=== PATIENT | male | born 1995 | race Caucasian/White ===

== ENCOUNTER 2019-01-09 23:46 | Emergency (ER) | payer MEDICAID, OTHER ==
[~2019-01-09] VITALS: Ht 180.3 cm; Wt 68.2 kg
[2019-01-10] MEDS ORDERED: LIDOcaine 1% 30ml preserv. free vial IJ ONE
[2019-01-10 01:00] VITALS: BP 125/79
[2019-01-17] MEDS ORDERED: CLIN-5 PO (09:21)
[2019-01-17] MEDS ORDERED: PER5325T PO (10:13)
== END 2019-01-10 01:04 | disposition home or self-care (01) ==
LOC: ER 23:47
DX: S61.212A Laceration without foreign body of right middle finger without damage to nail, initial encounter (principal); F12.90 Cannabis use, unspecified, uncomplicated; W25.XXXA Contact with sharp glass, initial encounter; Y93.89 Activity, other specified; Y92.89 Other specified places as the place of occurrence of the external cause; Y99.9 Unspecified external cause status
CPT/HCPCS: 12001; 73130; 99283; J2001

== ENCOUNTER 2019-03-26 23:20 | Emergency (ER) | payer MEDICAID, OTHER ==
[~2019-03-26] VITALS: Ht 180.3 cm; Wt 68.2 kg
[~2019-03-26 23:20] MED LIST: CLIN-5 PO; PER5325T PO
[2019-03-26 23:26] VITALS: BP 128/86
--- NOTE | 2019-03-27 10:31 | NUR ---
ATTEMPTED TO CALL PT. AT [phone]. NO GREGORY, UNABLE TO LEAVE A MESSAGE
--- NOTE | 2019-03-27 10:40 | NUR ---
CALLED ALTERNATE PHONE NUMBER DAVID CRAIG (BROTHER). LEFT A MESSAGE TO HAVE PT. CALL US AND ASK FOR THE CHARGE NURSE
--- NOTE | 2019-03-27 18:13 | NUR ---
PT CALLED BACK, INFORMED THAT SHE MAY HAVE OSTEOMYLITIS IN HER FINGER AND NEEDS TO COME BACK IN FOR REEVALUATION. PT STATES THAT SHE WILL BE BACK THIS EVENING.
== END 2019-03-27 03:08 | disposition left against medical advice (07) ==
LOC: ER 23:21
DX: M79.644 Pain in right finger(s) (principal); Z53.21 Procedure and treatment not carried out due to patient leaving prior to being seen by health care provider
CPT/HCPCS: 73130

== ENCOUNTER 2019-03-27 21:32 | Emergency (ER) | payer OTHER ==
[~2019-03-27] VITALS: Ht 180.3 cm; Wt 68.0 kg
[2019-03-27 21:36] VITALS: BP 126/87
[2019-03-28 02:01] LABS: BASOPHILS # (AUTO) 0.1 X10'3 (0-0.2); EOSINOPHILS # (AUTO) 0.4 X10'3 (0-0.9); EOSINOPHILS % (AUTO) 5.3 % (0-6); HEMATOCRIT 44.9 % (42.0-52.0); HEMOGLOBIN 15.5 g/dl (14.0-17.9); LYMPHOCYTES # (AUTO) 2.7 X10'3 (1.1-4.8); LYMPHOCYTES % (AUTO) 38.1 % (21-51); MEAN CORPUSCULAR HEMOGLOBIN 30.2 PG (27.0-31.0); MEAN CORPUSCULAR HGB CONC 34.5 g/dL (33.0-36.5); MEAN CORPUSCULAR VOLUME 87.7 FL (78-98); MEAN PLATELET VOLUME 7.1 FL (7.4-10.4); MONOCYTES # (AUTO) 0.4 X10'3 (0-0.9); MONOCYTES % (AUTO) 6.1 % (2-12); NEUTROPHILS # (AUTO) 3.6 X10'3 (1.8-7.7); NEUTROPHILS % (AUTO) 49.5 % (42-75); PLATELET COUNT 324 X10'3 (140-440); RED BLOOD COUNT 5.13 X10'6 (4.70-6.10); RED CELL DISTRIBUTION WIDTH 13.4 % (11.5-14.5); WHITE BLOOD COUNT 7.2 X10'3 (4.5-11.0)
[2019-03-28 02:15] LABS: ALBUMIN 4.4 G/DL (3.4-5.0); ANION GAP 5 (8-16); BLOOD UREA NITROGEN 17 MG/DL (7-18); BUN/CREATININE RATIO 15.7 (5.4-32.0); CALCIUM 9.4 MG/DL (8.5-10.1); CHLORIDE 103 MMOL/L (99-107); CREATININE 1.08 MG/DL (0.60-1.10); GLUCOSE 89 MG/DL (70-104); SODIUM 139 MMOL/L (135-145); TOTAL CARBON DIOXIDE 30.7 MMOL/L (24-32); eGFR 83 ML/MIN
== END 2019-03-28 03:00 | disposition home or self-care (01) ==
LOC: ER 21:33
DX: S56.11 Strain of flexor muscle, fascia and tendon of other and unspecified finger at forearm level (principal); F17.210 Nicotine dependence, cigarettes, uncomplicated; F12.90 Cannabis use, unspecified, uncomplicated; F10.99 Alcohol use, unspecified with unspecified alcohol-induced disorder; Z79.899 Other long term (current) drug therapy; W18.39XD Other fall on same level, subsequent encounter; Y90.9 Presence of alcohol in blood, level not specified
CPT/HCPCS: 36415; 73200; 80048; 85025; 85651; 99284

== ENCOUNTER 2020-06-08 11:50 | Emergency (ER) | payer MEDICAID ==
[~2020-06-08] VITALS: Ht 177.8 cm; Wt 68.2 kg
[~2020-06-08 11:50] MED LIST changes: -CLIN-5 PO; +CLIN-91 PO
[2020-06-08] MEDS ORDERED: LIDOcaine 1% W/epiNEPHrine 1:200,000 10ml vial IJ ONE (12:50)
[2020-06-08 14:25] VITALS: BP 126/81
== END 2020-06-08 14:26 | disposition home or self-care (01) ==
LOC: ER 11:51
DX: M79.644 Pain in right finger(s) (principal); F12.90 Cannabis use, unspecified, uncomplicated; Z98.890 Other specified postprocedural states; Z72.89 Other problems related to lifestyle; Z79.2 Long term (current) use of antibiotics
CPT/HCPCS: 73140; 99283

== ENCOUNTER 2022-02-15 11:41 | Emergency (ER) | payer MEDICAID ==
[~2022-02-15] VITALS: Ht 180.3 cm; Wt 75.0 kg
[2022-02-15 11:44] VITALS: BP 147/80
[2022-02-15] MEDS ORDERED: IBUP-1986 PO (12:33)
== END 2022-02-15 12:48 | disposition home or self-care (01) ==
LOC: ER 11:41
DX: S63.501A Unspecified sprain of right wrist, initial encounter (principal); F12.90 Cannabis use, unspecified, uncomplicated; X58.XXXA Exposure to other specified factors, initial encounter; Y93.89 Activity, other specified; Y92.89 Other specified places as the place of occurrence of the external cause; Y99.8 Other external cause status
CPT/HCPCS: 29125; 73110; 99283

== ENCOUNTER 2022-04-04 10:23 | Emergency (ER) | payer MEDICAID ==
[~2022-04-04] VITALS: Ht 175.3 cm; Wt 70.0 kg
[~2022-04-04 10:23] MED LIST changes: +IBUP-1986 PO
[2022-04-04 10:26] VITALS: BP 132/99
--- NOTE | 2022-04-04 10:30 | NUR ---
pt offered ice for his injury but declines
== END 2022-04-04 11:30 | disposition left against medical advice (07) ==
LOC: ER 10:23
DX: S52.91XA Unspecified fracture of right forearm, initial encounter for closed fracture (principal); W18.39XA Other fall on same level, initial encounter; Y93.89 Activity, other specified; Y92.89 Other specified places as the place of occurrence of the external cause; Y99.8 Other external cause status
CPT/HCPCS: 73080; 73110; 99284

== ENCOUNTER 2022-04-12 09:46 | Emergency (ER) | payer MEDICAID ==
[~2022-04-12] VITALS: Ht 180.3 cm; Wt 72.0 kg
[2022-04-12 09:52] VITALS: BP 125/83
--- NOTE | 2022-04-12 12:06 | NUR ---
Pt is sitting in bed, conversing with visitor. No acute distress at this time. Awaiting splint placement by orthotech.
--- NOTE | 2022-04-12 12:12 | NUR ---
Sal, orthotic and prosthetic technician at bedside.
== END 2022-04-12 12:38 | disposition home or self-care (01) ==
LOC: ER 09:46
DX: S62.001A Unspecified fracture of navicular [scaphoid] bone of right wrist, initial encounter for closed fracture (principal); F17.200 Nicotine dependence, unspecified, uncomplicated; F12.90 Cannabis use, unspecified, uncomplicated; Z72.89 Other problems related to lifestyle; Z98.890 Other specified postprocedural states; Z79.2 Long term (current) use of antibiotics; Z79.899 Other long term (current) drug therapy; X58.XXXA Exposure to other specified factors, initial encounter; Y93.89 Activity, other specified; Y92.89 Other specified places as the place of occurrence of the external cause; Y99.8 Other external cause status
CPT/HCPCS: 29125; 73110; 99284; A4565; A6449

== ENCOUNTER 2022-05-07 08:21 | Emergency (ER) | payer MEDICAID ==
[~2022-05-07] VITALS: Ht 180.3 cm; Wt 74.0 kg
[~2022-05-07 08:21] MED LIST changes: +LORA-269 PO; +ONDA4TAB12 PO
--- NOTE | 2022-05-07 09:13 | NUR ---
first contact. pt ao4 resp even unlabored. affected area is left elbow full range of motion with swelling noted and small clear discharge. at [facility]
[2022-05-07] MEDS ORDERED: acetaminophen 325mg tablet PO ONE (09:15)
[2022-05-07] MEDS ORDERED: sulfamethoxazole/trimethoprim DS (800/160mg) tablet PO ONE (09:15)
[2022-05-07] MEDS ORDERED: SULF1TAB49 PO (11:23)
[2022-05-07 11:53] VITALS: BP 136/87
== END 2022-05-07 11:55 | disposition home or self-care (01) ==
LOC: ER 08:22
DX: L03.114 Cellulitis of left upper limb (principal); M25.522 Pain in left elbow; F12.90 Cannabis use, unspecified, uncomplicated; Z98.890 Other specified postprocedural states; Z72.89 Other problems related to lifestyle; Z79.2 Long term (current) use of antibiotics; Z79.899 Other long term (current) drug therapy
CPT/HCPCS: 73070; 99284

== ENCOUNTER 2022-12-02 19:08 | Emergency (ER) | payer MEDICAID ==
[~2022-12-02] VITALS: Ht 180.3 cm; Wt 73.6 kg
[2022-12-02 19:22] VITALS: BP 141/89; PULSE 84; TEMP 97.9; O2SAT 98
[2022-12-02] MEDS ORDERED: HYDR-3965 PO (21:04)
[2022-12-02] MEDS ORDERED: HYDROcodone/acetaminophen 5mg/325mg tablet PO ONE (21:05)
[2022-12-02 21:07] VITALS: RESP 18
== END 2022-12-02 21:24 | disposition home or self-care (01) ==
LOC: ER 19:09
DX: S62.011 Displaced fracture of distal pole of navicular [scaphoid] bone of right wrist (principal); X58.XXXD Exposure to other specified factors, subsequent encounter
CPT/HCPCS: 29125; 73110; 73130; 99284